=== PATIENT | female | born 1955 | race Caucasian/White ===

== ENCOUNTER 2016-11-08 09:03 | Outpatient (CLI) | payer OTHER | END 2016-11-08 09:04 | disposition home or self-care (01) | DX: R25.2 Cramp and spasm (principal) ==

== ENCOUNTER 2016-11-15 08:06 | Outpatient (CLI) | payer OTHER | END 2016-11-15 23:59 | DX: E83.52 Hypercalcemia (principal) ==

== ENCOUNTER 2017-01-08 14:54 | Outpatient (CLI) | payer OTHER | END 2017-01-08 14:55 | disposition home or self-care (01) | DX: E55.9 Vitamin D deficiency, unspecified (principal); E83.52 Hypercalcemia ==

== ENCOUNTER 2017-04-17 08:03 | Outpatient (CLI) | payer OTHER ==
[2017-04-17 08:27] LABS: BASOPHILS # (AUTO) 0.1 10^3/uL (0.0-0.1); BASOPHILS % (AUTO) 1.3 %; EOSINOPHILS # (AUTO) 0.1 10^3/uL (0.0-0.7); EOSINOPHILS % (AUTO) 1.9 %; HCT - HEMATOCRIT 40.9 % (37.0-47.0); HGB - HEMOGLOBIN 13.8 g/dL (12.0-16.0); LYMPHOCYTES # (AUTO) 1.4 10^3/uL (1.5-3.5); MEAN CORPUSCULAR HEMOGLOBIN 30.1 pg (27.0-31.0); MEAN CORPUSCULAR HGB CONC 33.8 g/dL (32.0-36.0); MEAN CORPUSCULAR VOLUME 89.2 fL (81.0-99.0); MEAN PLATELET VOLUME 9.4 fL (7.9-10.8); MONOCYTES # (AUTO) 0.4 10^3/uL (0.0-1.0); MONOCYTES % (AUTO) 7.4 %; NEUTROPHILS # (AUTO) 3.5 10^3/uL (1.5-6.6); NEUTROPHILS % (AUTO) 64.4 %; RED BLOOD COUNT 4.58 10^6/uL (4.20-5.40); UNCORRECTED WHITE BLOOD COUNT 5.5 x10^3/uL; WHITE BLOOD COUNT 5.5 x10^3/uL (4.8-10.8)
[2017-04-17 08:33] LABS: CALCIUM, IONIZED 1.35 mmol/L (1.15-1.33); VBG PH 7.428 (7.31-7.41)
[2017-04-17 08:54] LABS: ALBUMIN/GLOBULIN RATIO 1.7 (1.0-2.2); BILIRUBIN,TOTAL 0.9 mg/dL (0.2-1.0); BUN - BLOOD UREA NITROGEN 15 mg/dL (6-20); CALCIUM 10.4 mg/dL (8.5-10.3); CARBON DIOXIDE - CO2 24 mmol/L (21-32); CHLORIDE 106 mmol/L (101-111); CHOL/HDL RATIO 3.1 (<4.4); CHOLESTEROL 193 mg/dL; CREATININE 0.7 mg/dL (0.4-1.0); GFR - MDRD 85 (>89); GLUCOSE 98 mg/dL (70-100); HDL CHOLESTEROL 62 mg/dL; LDL/HDL RATIO 1.8 (<4.4); POTASSIUM 4.3 mmol/L (3.5-5.0); SODIUM 137 mmol/L (135-145); TOTAL PROTEIN 6.7 g/dL (6.7-8.2); TRIGLYCERIDES 110 mg/dL; VLDL CHOLESTEROL 22 mg/dL
== END 2017-04-17 08:04 | disposition home or self-care (01) ==
LOC: LAB.R 08:03
PROVIDERS: ATTEND Physician Assistant Medical
DX: Z00.00 Encounter for general adult medical examination without abnormal findings (principal); E83.52 Hypercalcemia; Z79.899 Other long term (current) drug therapy
CPT/HCPCS: 80053; 80061; 82306; 82330; 84443; 85025

== ENCOUNTER 2017-12-02 10:05 | Outpatient (CLI) | payer OTHER ==
[2017-12-02 13:27] LABS: CREATININE 0.7 mg/dL (0.4-1.0)
== END 2017-12-02 10:06 | disposition home or self-care (01) ==
LOC: LAB.R 10:05
PROVIDERS: ATTEND Physician Assistant Medical
DX: Z79.899 Other long term (current) drug therapy (principal)
CPT/HCPCS: 82565; 84520

== ENCOUNTER 2020-03-16 11:19 | Outpatient (CLI) | payer BC ==
[2020-03-16] MEDS ORDERED: IOVERSOL 320 100 ML VIAL IVP ONE ×2 (11:50→13:58)
[2020-03-16] MEDS ORDERED: IOVERSOL 320 50 ML VIAL ONE (11:50)
[2020-03-16 12:11] LABS: CREATININE 0.7 mg/dL (0.4-1.0)
[2020-03-16] MEDS ORDERED: IOVERSOL 320 50 ML VIAL PO ONE (13:58)
--- NOTE | 2020-03-16 14:56 | CT Report ---
Reason: RLQ PAIN Procedure Date: 03/16/2020 Accession Number: [id number] / [id number] Procedure: CT - Abdomen/Pelvis W CPT Code: Addended Final Report FULL RESULT: EXAM: CT ABDOMEN AND PELVIS EXAM DATE: 03/16/2020 12:53 PM. CLINICAL HISTORY: RLQ pain. COMPARISONS: None. TECHNIQUE: Routine helical CT imaging was performed through the abdomen and pelvis. IV contrast: 100 mL of Optiray 320. Enteric contrast: Yes. Reconstructions: Coronal and sagittal. In accordance with CT protocol optimization, one or more of the following dose reduction techniques were utilized for this exam: automated exposure control, adjustment of mA and/or KV based on patient size, or use of iterative reconstructive technique. FINDINGS: Lung Bases: Small incidental hiatal hernia. No effusions. Liver: Normal. No masses. Gallbladder/Bile Ducts: Gallbladder is absent. No significant common bile duct dilation noted. Spleen: No mass or splenomegaly. Indeterminate low density cystic structure in the inferior spleen measures 0.7 cm on image 3, 25. No enhancing solid component is noted. Pancreas: Normal. Adrenal Glands: Normal. Kidneys: Normal. No masses or hydronephrosis. Peritoneal Cavity/Bowel: No pneumoperitoneum, adenopathy or mass. The inflamed, dilated appendix measures up to 1.3 cm and is seen on image 3, 54. There is moderate to marked adjacent fat stranding. No loculated fluid collection seen. No pneumatosis, obstruction or other complications noted. Colonic diverticulosis is noted. Remaining small bowel, large bowel and stomach are normal. Pelvic Organs: Prominent pelvic vessels are noted bilaterally. Both ovaries appeared normal. The uterus is absent. Otherwise, the bladder and visualized pelvic organs are within normal limits. No collections, ascites or adenopathy. Vasculature: Diffuse atheromatous plaques are present in the abdominal aorta and branch vessels. No aneurysm. Normal IVC. Bones: No significant abnormality. Other: None. IMPRESSION: 1. CT findings compatible with acute appendicitis. No complications such as perforation or abscess. 2. Diverticulosis. 3. Status post hysterectomy and cholecystectomy. [facility] The call report notification system was initiated by Dr. Elizabeth Reyes at 02:55 PM on 03/16/2020. ADDENDUM: 03/16/20 15:23 The above call report findings were discussed with Margarita Gibbs by Dr. Elizabeth Reyes at 03:23 PM on 03/16/2020.
== END 2020-03-16 11:20 | disposition home or self-care (01) ==
LOC: DI 11:19
PROVIDERS: ATTEND Internal Medicine
DX: K57.30 Diverticulosis of large intestine without perforation or abscess without bleeding (principal); R10.31 Right lower quadrant pain; Z90.710 Acquired absence of both cervix and uterus; Z90.49 Acquired absence of other specified parts of digestive tract; Z79.899 Other long term (current) drug therapy
CPT/HCPCS: 36415; 74177; 82565; Q9967

== ENCOUNTER 2020-03-16 15:55 | Day surgery (SDC) | payer BC ==
--- NOTE | 2020-03-16 16:10 | ED Physician Documentation ---
PD HPI ABD PAIN - Stated complaint Stated Complaint: RT ABD PX - Chief complaint Chief Complaint: Abd Pain - History obtained from History obtained from: Patient (64-year-old woman relatively healthy with history of psoriasis and arthritis. Also remote history of open cholecystectomy and presents with lower abdominal pain that started last night around 7 PM. She had an outpatient CT done today showing uncomplicated appendicitis and was referred to the emergency department for further evaluation and treatment. Last oral intake was a tuna sandwich at 1330. 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 - Present Medications Home Medications: Ambulatory Orders Medication Instructions Recorded Confirmed Acyclovir 400 mg PO BID 03/16/20 03/16/20 Apremilast [Otezla] 30 mg PO BID 03/16/20 03/16/20 Famotidine 20 mg PO DAILY 03/16/20 03/16/20 - Allergies Allergies/Adverse Reactions: Allergies Allergy/AdvReac Type Severity Reaction Status Date / Time Penicillins Allergy Anaphylaxis Verified 03/16/20 16:04 - Social History Does the pt smoke?: No Does the pt have substance abuse?: No - Family History Family history: reports: Non contributory PD ED PE NORMAL - Vitals Vital signs reviewed: Yes - General General: Alert and oriented X 3, No acute distress - HEENT HEENT: PERRL, EOMI - Neck Neck: Supple, no meningeal sign, No bony TTP - Cardiac Cardiac: RRR, No murmur - Respiratory Respiratory: No respiratory distress, Clear bilaterally - Abdomen Abdomen: Normal bowel sounds, Soft, Other (Modest tenderness in the right lower quadrant without surgical signs) - Back Back: No CVA TTP, No spinal TTP - Derm Derm: Normal color, Warm and dry - Extremities Extremities: No edema, No calf tenderness / cord - Neuro Neuro: Alert and oriented X 3, Normal speech Results - Vitals Vitals: Vital Signs - 24 hr 03/16/20 03/16/20 03/16/20 16:05 16:39 17:08 Temperature 37.2 C Heart Rate 83 78 79 Respiratory 16 18 17 Rate Blood Pressure 147/66 H 148/77 H 136/77 H O2 Saturation 97 97 97 Oxygen O2 Source Room air - Labs Labs: Laboratory Tests 03/16/20 03/16/20 16:32 16:32 WBC 7.4 RBC 4.54 Hgb 14.1 Hct 42.7 MCV 94.1 MCH 31.1 H MCHC 33.0 RDW 13.2 Plt Count 322 MPV 10.1 Neut # (Auto) 5.0 Lymph # (Auto) 1.7 [place] # (Auto) 0.6 Eos # (Auto) 0.0 Baso # (Auto) 0.0 Absolute Nucleated RBC 0.00 Nucleated RBC % 0.0 Sodium 136 Potassium 3.7 Chloride 102 Carbon Dioxide 27 Anion Gap 7.0 BUN 14 Creatinine 0.9 Estimated GFR (MDRD) 63 L Glucose 111 H Calcium 10.5 H Total Bilirubin 0.8 AST 15 ALT 16 Alkaline Phosphatase 53 Total Protein 7.2 Albumin 4.3 Globulin 2.9 Albumin/Globulin Ratio 1.5 Lipase 30 PD MEDICAL DECISION MAKING - ED course ED course: 64-year-old woman presents from an outpatient setting with a CT positive for appendicitis. The surgeon, Dr. Muñoz was called after my evaluation and she was administered cefotetan and pending the OR. Departure - Departure Disposition: ED Transfer to [facility] Clinical Impression: Uncomplicated acute appendicitis Condition: Stable Discharge Date/Time: 03/16/20 17:22
[2020-03-16] MEDS ORDERED: CEFOTETAN DISODIUM 2 GM in SODIUM CHLORIDE 0.9% MINIBAG 100 ML IV STA (16:24)
[2020-03-16 16:42] LABS: BASOPHILS % (AUTO) 0.5 %; EOSINOPHILS % (AUTO) 0.5 %; HGB - HEMOGLOBIN 14.1 g/dL (12.0-16.0); LYMPHOCYTES # (AUTO) 1.7 10^3/uL (1.5-3.5); LYMPHOCYTES % (AUTO) 23.3 %; MEAN CORPUSCULAR HEMOGLOBIN 31.1 pg (27.0-31.0); MEAN CORPUSCULAR VOLUME 94.1 fL (81.0-99.0); MEAN PLATELET VOLUME 10.1 fL (7.9-10.8); MONOCYTES # (AUTO) 0.6 10^3/uL (0.0-1.0); MONOCYTES % (AUTO) 7.9 %; NEUTROPHILS % (AUTO) 67.5 %; PLT - PLATELET COUNT 322 10^3/uL (130-450); RED BLOOD COUNT 4.54 10^6/uL (4.20-5.40); RED CELL DISTRIBUTION WIDTH 13.2 % (12.0-15.0); WHITE BLOOD COUNT 7.4 x10^3/uL (4.8-10.8)
[2020-03-16 16:55] LABS: ALBUMIN 4.3 g/dL (3.2-5.5); ALBUMIN/GLOBULIN RATIO 1.5 (1.0-2.2); BILIRUBIN,TOTAL 0.8 mg/dL (0.2-1.0); CALCIUM 10.5 mg/dL (8.5-10.3); CREATININE 0.9 mg/dL (0.4-1.0); TOTAL PROTEIN 7.2 g/dL (6.7-8.2)
--- NOTE | 2020-03-16 16:57 | ANESTHESIA ---
Pre-Anesthesia VS, & Labs - Diagnosis acute appendicitis - Procedure laparoscopic appendectomy Vital Signs: Temp Pulse Resp BP Pulse Ox 37.2 C 83 16 147/66 H 97 03/16/20 16:05 03/16/20 16:05 03/16/20 16:05 03/16/20 16:05 03/16/20 16:05 Height 5 ft 1 in Weight (kg) 63.957 kg Body Mass Index 26.6 - NPO Other (ate 1330) - Is Patient ?: No - Lab Results Current Lab Results: Laboratory Tests 03/16/20 16:32: Sodium 136, Potassium 3.7, Chloride 102, Carbon Dioxide 27, Anion Gap 7.0, BUN 14, Creatinine 0.9, Estimated GFR (MDRD) 63 L, Glucose 111 H, Calcium 10.5 H, Total Bilirubin 0.8, AST 15, ALT 16, Alkaline Phosphatase 53, To paulette Protein 7.2, Albumin 4.3, Globulin 2.9, Albumin/Globulin Ratio 1.5, Lipase 30 03/16/20 16:32: WBC 7.4, RBC 4.54, Hgb 14.1, Hct 42.7, MCV 94.1, MCH 31.1 H, MCHC 33.0, RDW 13.2, Plt Count 322, MPV 10.1, Neut # (Auto) 5.0, Lymph # (Auto) 1.7, [place] # (Auto) 0.6, Eos # (Auto) 0.0, Baso # (Auto) 0.0, Absolute Nucleated RBC 0.00, Nucleated RBC % 0.0 Lab results reviewed: Yes Fish Bones: 03/16/20 16:32 03/16/20 16:32 Home Medications and Allergies Home Medications: Ambulatory Orders Acyclovir 400 mg PO BID 03/16/20 Apremilast [Otezla] 30 mg PO BID 03/16/20 Famotidine 20 mg PO DAILY 03/16/20 Acyclovir 400 mg PO BID 03/16/20 Apremilast [Otezla] 30 mg PO BID 03/16/20 Famotidine 20 mg PO DAILY 03/16/20 Allergies/Adverse Reactions: Allergies Allergy/AdvReac Type Severity Reaction Status Date / Time Penicillins Allergy Anaphylaxis Verified 03/16/20 16:04 Anes History & Medical History - Anesthetic History Anesthesia Complications: reports: No previous complications Family history of Anesthesia Complications: Denies Family history of Malignant Hyperthermia: Denies - Medical History Cardiovascular: reports: None Pulmonary: reports: None Gastrointestinal: reports: Other (IBS) Musculoskeletal: reports: Osteoarthritis Skin: reports: Psoriasis Smoking Status: Former smoker - Surgical History General: Cholecystectomy Gynecologic: section Exam General: Alert, Oriented x3, Cooperative Dental: WNL Mouth Opening: Greater than 4 Fingerbreadths Neck Mobility: Normal Mallampati classification: II Thyromental Distance: 4-6 cm Respiratory: Lungs clear Cardiovascular: Regular rate Plan Anesthesia Type: General Consent for Procedure(s) Verified and Reviewed: Yes Code Status: Attempt Resuscitation ASA classification: 2-Mild systemic disease Is this case an emergency?: Yes
[2020-03-16] MEDS ORDERED: BUPIVACAINE 0.25% PF 30 ML VIAL ONE (17:00)
[2020-03-16] MEDS ORDERED: LIDOCAINE 1%-EPI 1:100000 20 ML MDV ONE (17:00)
[2020-03-16] MEDS ORDERED: SUGAMMADEX 500 MG/5 ML VIAL IVP ONE (17:02)
[2020-03-16] MEDS ORDERED: SUGAMMADEX 200 MG/2 ML VIAL IVP ONE (17:03)
[2020-03-16] MEDS ORDERED: LACTATED RINGERS 1,000 ML IV ONE (17:05)
--- NOTE | 2020-03-16 17:06 | HISTORY & PHYSICAL EXAMINATION ---
Chief Complaint - Chief Complaint Chief Complaint: abdominal pain x 24 hours. 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 Social & Family Hx - Social History Does the pt smoke?: No Smoking Status: Former smoker Does the pt drink ETOH?: No Does the pt have substance abuse?: No Meds/Allgy - Home Medications Home Medications: Ambulatory Orders Medication Instructions Recorded Confirmed Acyclovir 400 mg PO BID 03/16/20 03/16/20 Apremilast [Otezla] 30 mg PO BID 03/16/20 03/16/20 Famotidine 20 mg PO DAILY 03/16/20 03/16/20 - Allergies Allergies/Adverse Reactions: Allergies Allergy/AdvReac Type Severity Reaction Status Date / Time Penicillins Allergy Anaphylaxis Verified 03/16/20 16:04 Review of Systems - Constitutional Constitutional: reports: Fatigue (10 pt ros as above and below otherwise unremarkable) Exam - Vital Signs Vital Signs: Vital Signs x48h Temp Pulse Resp BP Pulse Ox 03/16/20 16:39 78 18 148/77 H 97 03/16/20 16:05 37.2 C 83 16 147/66 H 97 - Physical Exam General Appearance: positive: No acute distress Eyes Bilateral: positive: Normal inspection, PERRL, EOMI Neck: positive: No JVD Respiratory: positive: No respiratory distress Abdomen: positive: No distention, Tenderness (right lower quadrant) Extremities: positive: No pedal edema Neurologic/Psychiatric: positive: Oriented x3 Results - Lab Results Fish Bones: 03/16/20 16:32 03/16/20 16:32 Other Lab Results: Lab Results x24hrs 03/16/20 03/16/20 Range/Units 16:32 16:32 WBC 7.4 (4.8-10.8) x10^3/uL RBC 4.54 (4.20-5.40) 10^6/uL Hgb 14.1 (12.0-16.0) g/dL Hct 42.7 (37.0-47.0) % MCV 94.1 (81.0-99.0) fL MCH 31.1 H (27.0-31.0) pg MCHC 33.0 (32.0-36.0) g/dL RDW 13.2 (12.0-15.0) % Plt Count 322 (130-450) 10^3/uL MPV 10.1 (7.9-10.8) fL Neut # (Auto) 5.0 (1.5-6.6) 10^3/uL Lymph # (Auto) 1.7 (1.5-3.5) 10^3/uL [place] # (Auto) 0.6 (0.0-1.0) 10^3/uL Eos # (Auto) 0.0 (0.0-0.7) 10^3/uL Baso # (Auto) 0.0 (0.0-0.1) 10^3/uL Absolute Nucleated RBC 0.00 x10^3/uL Nucleated RBC % 0.0 /100WBC Sodium 136 (135-145) mmol/L Potassium 3.7 (3.5-5.0) mmol/L Chloride 102 (101-111) mmol/L Carbon Dioxide 27 (21-32) mmol/L Anion Gap 7.0 (6-13) BUN 14 (6-20) mg/dL Creatinine 0.9 (0.4-1.0) mg/dL Estimated GFR (MDRD) 63 L (>89) Glucose 111 H (70-100) mg/dL Calcium 10.5 H (8.5-10.3) mg/dL Total Bilirubin 0.8 (0.2-1.0) mg/dL AST 15 (10-42) IU/L ALT 16 (10-60) IU/L Alkaline Phosphatase 53 (42-121) IU/L Total Protein 7.2 (6.7-8.2) g/dL Albumin 4.3 (3.2-5.5) g/dL Globulin 2.9 (2.1-4.2) g/dL Albumin/Globulin Ratio 1.5 (1.0-2.2) Lipase 30 (22-51) U/L - Diagnostic Imaging Results Diagnostic Imaging Results: positive: Read independently (obvious appendicitis) Impression/Plan - Problem List Problem List: Appendicitis parq held and consent obtained. plan lap appendectomy
[2020-03-16] MEDS ORDERED: DEXAMETHASONE 4 MG/ML VIAL IVP ONE (17:07)
[2020-03-16] MEDS ORDERED: PROPOFOL 200 MG/20 ML VIAL IVP ONE (17:07)
[2020-03-16] MEDS ORDERED: KETOROLAC 30 MG/ML VIAL IVP ONE (17:07)
[2020-03-16] MEDS ORDERED: ROCURONIUM 50 MG/5 ML VIAL IVP ONE (17:07)
[2020-03-16] MEDS ORDERED: ONDANSETRON 4 MG/2 ML VIAL IVP ONE (17:07)
[2020-03-16] MEDS ORDERED: MIDAZOLAM 2 MG/2 ML VIAL IVP ONE (17:07)
[2020-03-16] MEDS ORDERED: fentaNYL 250 MCG/5 ML VIAL IVP ONE (17:07)
[2020-03-16] MEDS ORDERED: LIDOCAINE 1%-EPI 1:100000 20 ML MDV SUBQ ONE ×2 (17:56)
[2020-03-16] MEDS ORDERED: BUPIVACAINE 0.25% PF 30 ML VIAL SUBQ ONE ×2 (17:57)
[2020-03-16] MEDS ORDERED: HYDROcod/ACETAM 5/325 MG TABLET PO PRN (18:38)
[2020-03-16 20:16] VITALS: BP 130/75
--- NOTE | 2020-03-17 19:30 | OPERATIVE REPORT ---
DATE OF SERVICE: 03/16/2020 Physician: Andrea Muñoz MD PREOPERATIVE DIAGNOSIS: Acute appendicitis. POSTOPERATIVE DIAGNOSIS: Acute appendicitis. PROCEDURE PERFORMED: Laparoscopic appendectomy. SURGEON: Andrea Muñoz MD [id number] OPERATOR: None. ANESTHESIA: General endotracheal anesthesia, local anesthesia with Marcaine. COMPLICATIONS: None. ESTIMATED BLOOD LOSS: 10 mL or less. SPECIMENS: Appendix. DRAINS: None. FINDINGS: Acute appendicitis without suppurative change or purulence. INDICATIONS FOR PROCEDURE: Patient is a healthy 64-year-old with vague abdominal pain starting 24 ho urs prior to the procedure. Her pain localized to the right lower quadrant and CT scan was obtained. A CT scan revealed acute appendicitis. She has taken urgently to the operating room after procedur e, alternatives, risks discussed. All questions answered and consent obtained. DESCRIPTION OF PROCEDURE: Patient was properly identified, brought to the operating room and placed in supine position. She voided prior to surgery. General endotracheal anesthesia was induced and se quential compression devices placed. She was prepped and draped in a sterile fashion. She previousl y received antibiotics through the Emergency Department. Local anesthetic was given to incision area s. An infraumbilical incision was made. Dissection proceeded down to the fascia. The fascia was in cised lifted upwards and the abdomen entered with a Veress needle. CO2 was insufflated to a pressure of 15. A 12 mm trocar was placed, followed by a 30-degree scope. There was no evidence of injury f rom Veress needle or trocar placement. Patient has had prior surgery, open cholecystectomy and low m idline incision as well. She had minimal to no intra-abdominal adhesions. Under direct vision, a 5 mm trocar was placed in the right upper quadrant and a 5 mm trocar was placed suprapubically. The ap pendix was long, floppy, and obviously inflamed. It was retracted anterior. She had a relatively la rge mesoappendix and long appendix. A plane was created towards the base of the appendix between the appendix and the mesoappendix. The mesoappendix was divided with an Endo-MOOSE vascular load. There was approximately 5-10 mL of bleeding at the staple line. This was controlled with cautery. An krissy tional vessel at the cecum, appendix junction was divided with an Endo-MOOSE vascular load. The append ix was then divided right at the cecum with an Endo-MOOSE intestinal load. Hemostasis was assured. Th e appendix was placed in an EndoCatch bag and brought out. The abdomen was thoroughly irrigated. Tr ocars were removed under direct vision and CO2 evacuated. Hemostasis again assured. Fascia at the i nfraumbilical site was closed with a running 0 Vicryl suture. Skin was closed with buried interrupte d 4-0 Monocryl. Dressings were applied. She tolerated the procedure well. TD: 03/17/2020 18:58
== END 2020-03-16 20:30 | disposition home or self-care (01) ==
LOC: ED 15:55 → SDS 17:06 → MS2 19:12 → SDS 20:30
PROVIDERS: ATTEND Surgery
PROC: 0DTJ4ZZ Resection of Appendix, Percutaneous Endoscopic Approach (ICD-10-PCS; principal; 2020-03-16 17:00)
DX: K35.80 Unspecified acute appendicitis (principal); Z87.891 Personal history of nicotine dependence; K57.30 Diverticulosis of large intestine without perforation or abscess without bleeding; Z90.710 Acquired absence of both cervix and uterus; Z90.49 Acquired absence of other specified parts of digestive tract; Z79.899 Other long term (current) drug therapy
CPT/HCPCS: 36415; 44970; 74177; 80053; 82565; 83690; 85025; 96365; 99284; 99285; J3010; J7120; Q9967

== ENCOUNTER 2021-04-30 10:20 | Outpatient (CLI) | payer BC ==
[2021-04-30 10:36] LABS: BASOPHILS # (AUTO) 0.1 10^3/uL (0.0-0.1); BASOPHILS % (AUTO) 0.9 %; EOSINOPHILS # (AUTO) 0.1 10^3/uL (0.0-0.7); EOSINOPHILS % (AUTO) 1.4 %; HCT - HEMATOCRIT 41.9 % (37.0-47.0); HGB - HEMOGLOBIN 13.4 g/dL (12.0-16.0); LYMPHOCYTES # (AUTO) 1.3 10^3/uL (1.5-3.5); LYMPHOCYTES % (AUTO) 20.7 %; MEAN CORPUSCULAR HEMOGLOBIN 29.6 pg (27.0-31.0); MEAN CORPUSCULAR VOLUME 92.5 fL (81.0-99.0); MONOCYTES # (AUTO) 0.5 10^3/uL (0.0-1.0); NEUTROPHILS # (AUTO) 4.5 10^3/uL (1.5-6.6); NEUTROPHILS % (AUTO) 69.7 %; PLT - PLATELET COUNT 310 10^3/uL (130-450); RED BLOOD COUNT 4.53 10^6/uL (4.20-5.40); RED CELL DISTRIBUTION WIDTH 13.9 % (12.0-15.0); WHITE BLOOD COUNT 6.4 x10^3/uL (4.8-10.8)
[2021-04-30 10:54] LABS: ALBUMIN 4.1 g/dL (3.2-5.5); ALKALINE PHOSPHATASE 50 IU/L (42-121); ALT ALANINE AMINOTRANSFERASE 13 IU/L (10-60); AST ASPARTATE AMINOTRANSFERASE 10 IU/L (10-42); BILIRUBIN,DIRECT 0.1 mg/dL (0.1-0.5); BILIRUBIN,TOTAL 0.7 mg/dL (0.2-1.0); BUN - BLOOD UREA NITROGEN 14 mg/dL (6-20); CALCIUM 10.2 mg/dL (8.5-10.3); CARBON DIOXIDE - CO2 25 mmol/L (21-32); CHLORIDE 106 mmol/L (101-111); CHOL/HDL RATIO 2.5 (<4.4); CHOLESTEROL 186 mg/dL; CREATININE 0.6 mg/dL (0.4-1.0); GFR - MDRD 100 (>89); GLUCOSE 125 mg/dL (70-100); HDL CHOLESTEROL 74 mg/dL; LDL CHOLESTEROL,CALCULATED 87 mg/dL; LDL/HDL RATIO 1.2 (<4.4); POTASSIUM 4.1 mmol/L (3.5-5.0); SODIUM 140 mmol/L (135-145); TOTAL PROTEIN 6.4 g/dL (6.7-8.2); TRIGLYCERIDES 124 mg/dL; VLDL CHOLESTEROL 25 mg/dL
== END 2021-04-30 10:21 | disposition home or self-care (01) ==
LOC: LAB 10:20
DX: L40.0 Psoriasis vulgaris (principal); Z79.899 Other long term (current) drug therapy
CPT/HCPCS: 36415; 80048; 80061; 80076; 83721; 85025

== ENCOUNTER 2022-08-14 08:00 | Outpatient (CLI) | payer MEDICARE, OTHER ==
[2022-08-14 16:16] LABS: CALCIUM 10.4 mg/dL (8.5-10.3); CHOL/HDL RATIO 2.7 (<4.4); CHOLESTEROL 198 mg/dL; CK- CREATINE KINASE 39 IU/L (22-269); HDL CHOLESTEROL 73 mg/dL; LDL CHOLESTEROL,CALCULATED 106 mg/dL; LDL/HDL RATIO 1.5 (<4.4); MAGNESIUM 2.1 mg/dL (1.7-2.8); TRIGLYCERIDES 96 mg/dL; VLDL CHOLESTEROL 19 mg/dL
[2022-08-14 22:11] LABS: ESTIMATED AVERAGE GLUCOSE 105 mg/dL (70-100); HEMOGLOBIN A1c% 5.3 % (4.27-6.07)
== END 2022-08-14 23:59 | disposition home or self-care (01) ==
LOC: LAB.R 08:00
PROVIDERS: ATTEND Internal Medicine
DX: Z00.00 Encounter for general adult medical examination without abnormal findings (principal); F41.9 Anxiety disorder, unspecified; D18.00 Hemangioma unspecified site; A60.00 Herpesviral infection of urogenital system, unspecified; E78.5 Hyperlipidemia, unspecified; R68.84 Jaw pain; D36.10 Benign neoplasm of peripheral nerves and autonomic nervous system, unspecified; M19.90 Unspecified osteoarthritis, unspecified site; L40.9 Psoriasis, unspecified; Z79.899 Other long term (current) drug therapy
CPT/HCPCS: 80061; 82310; 82550; 83036; 83721; 83735

== ENCOUNTER 2023-01-27 18:37 | Emergency (ER) | payer MEDICARE, OTHER ==
[2023-01-27 18:45] VITALS: BP 158/70
[2023-01-27] MEDS ORDERED: TETANUS/DIPHTHERIA/PERTUSSIS 0.5 ML SYRINGE IM ONE (19:05)
[2023-01-27] MEDS ORDERED: BACITRACIN ZINC OINT 1 PACKET TOP STA (19:31)
[2023-01-27] MEDS ORDERED: DOXYCYCLINE 100 MG TABLET PO STA (19:33)
--- NOTE | 2023-01-27 19:36 | ED Physician Documentation ---
History of Present Illness - Stated complaint Stated Complaint: RT HAND LAC - Chief complaint Chief Complaint: Laceration - Additonal information Additional information: 59-year-old female presents the emergency department for evaluation of a right hand laceration. She was being playful and petting her dog when the dog opened its mouth and her hand came into contact with one of the canines. This was not a puncture wound but rather a tearing laceration. Patient's tetanus is up-to-date in 2019. Her dogs vaccines are also up-to-date. 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 - Present Medications Home Medications: Ambulatory Orders Medication Instructions Recorded Confirmed Acyclovir 400 mg PO BID 03/16/20 03/16/20 Apremilast [Otezla] 30 mg PO BID 03/16/20 03/16/20 Famotidine 20 mg PO DAILY 03/16/20 03/16/20 Hydrocodone/Acetaminophen 1 each PO Q6HR PRN #20 tablet 03/16/20 [Hydrocodone-Acetamin 5-325 mg] Ondansetron Odt [Zofran Odt] 4 mg PO Q6H PRN #15 tablet 03/16/20 Doxycycline Hyclate 100 mg PO BID #6 cap 01/27/23 - Allergies Allergies/Adverse Reactions: Allergies Allergy/AdvReac Type Severity Reaction Status Date / Time Penicillins Allergy Anaphylaxis Verified 01/27/23 18:45 - Social History Does the pt smoke?: No Smoking Status: Never smoker Does the pt drink ETOH?: Yes Does the pt have substance abuse?: No - Immunizations Immunizations are current?: Yes Immunizations: TDAP >10years/unknown - POLST Patient has POLST: No PD ED PE NORMAL - General General: Alert and oriented X 3, No acute distress - Derm Derm: Other (3 cm laceration on the dorsum of the right hand between the thumb and index finger. Preserved flexion and extension against resistance of the thumb and index finger. Neurovascular intact.) Results - Vitals Vitals: Vital Signs - 24 hr 01/27/23 18:43 Temperature 36.0 C L Heart Rate 102 H Respiratory 16 Rate Blood Pressure 158/70 H O2 Saturation 96 Oxygen O2 Source Room air Procedures - Laceration (location) Right hand Length in cm: 3 Wound type: Linear, Into subcut fat Neurovascular status: Sensory intact, Motor intact Tendon involvement: Tendon intact Anesthesia: Marcaine 0.5% Wound preparation: Chlorhexadine, Irrigated copiously NS Skin layer closure: Nylon, Interrupted, Size #-0 - enter number (4), Sutures - enter # (3) Other: Patient tolerated well, No complications, Neurovascular intact, Tetanus UTD PD Medical Decision Making - ED course Complexity details: considered differential, d/w patient ED course: 59-year-old female presents emergency department for evaluation of right hand laceration sustained when her hand incidentally came into contact with her dog's tooth while they were playing. This was not an aggressive bite or puncture wound. Patient's tetanus is up-to-date. Laceration was easily closed utilizing 3 interrupted 4-0 nylon sutures. Given incidental exposure with dog's mouth 3 days of doxycycline are being sent to the patient's preferred pharmacy. Patient does have anaphylaxis to penicillin. Routine wound care and the usual emergent return precautions were discussed Departure - Departure Disposition: 01 Home, Self Care Clinical Impression: Laceration of right hand Qualifiers: Encounter type: initial encounter Foreign body presence: without foreign body Qualified Code(s): S61.411A - Laceration without foreign body of right hand, initial encounter Condition: Stable Record reviewed to determine appropriate education?: Yes Prescriptions: Doxycycline Hyclate 100 mg PO BID #6 cap Comments: Your suture(s) should be removed in 10 days. In 24 hours you may remove the dressing wash gently with warm soap and water, apply any antibiotic ointment and a simple bandage. Your tetanus is up-to-date. Please attempt to keep your wound clean and dry. Do not submerge it in dirty dishwater or bath water. I have prescribed 3 days of prophylactic antibiotic to the [facility] pharmacy as your laceration was sustained from incidental contact with your dog's mouth. Return to the emergency department if you have any concerns of infection such as redness, fevers milky drainage increased pain.
== END 2023-01-27 19:43 | disposition home or self-care (01) ==
LOC: ED 18:37
DX: S61.411A Laceration without foreign body of right hand, initial encounter (principal); W45.8XXA Other foreign body or object entering through skin, initial encounter; Y93.K9 Activity, other involving animal care
CPT/HCPCS: 12002; 99282; A9270

== ENCOUNTER 2023-10-02 07:51 | Outpatient (CLI) | payer MEDICARE, OTHER ==
[2023-10-02 08:13] LABS: BASOPHILS # (AUTO) 0.1 10^3/uL (0.0-0.1); BASOPHILS % (AUTO) 0.8 %; EOSINOPHILS # (AUTO) 0.1 10^3/uL (0.0-0.7); EOSINOPHILS % (AUTO) 0.9 %; HCT - HEMATOCRIT 39.1 % (37.0-47.0); HGB - HEMOGLOBIN 12.5 g/dL (12.0-16.0); LYMPHOCYTES # (AUTO) 1.4 10^3/uL (1.5-3.5); MEAN CORPUSCULAR HEMOGLOBIN 29.4 pg (27.0-31.0); MEAN PLATELET VOLUME 9.3 fL (7.9-10.8); MONOCYTES # (AUTO) 0.7 10^3/uL (0.0-1.0); NEUTROPHILS # (AUTO) 5.2 10^3/uL (1.5-6.6); NEUTROPHILS % (AUTO) 69.8 %; PLT - PLATELET COUNT 437 10^3/uL (130-450); RED BLOOD COUNT 4.25 10^6/uL (4.20-5.40); RED CELL DISTRIBUTION WIDTH 13.2 % (12.0-15.0); WHITE BLOOD COUNT 7.4 x10^3/uL (4.8-10.8)
[2023-10-02 08:30] LABS: ALBUMIN 3.7 g/dL (3.2-5.5); ALBUMIN/GLOBULIN RATIO 1.3 (1.0-2.2); ALKALINE PHOSPHATASE 48 IU/L (42-121); ALT ALANINE AMINOTRANSFERASE 6 IU/L (10-60); AST ASPARTATE AMINOTRANSFERASE 8 IU/L (10-42); BILIRUBIN,TOTAL 0.5 mg/dL (0.2-1.0); BUN - BLOOD UREA NITROGEN 12 mg/dL (6-20); CARBON DIOXIDE - CO2 29 mmol/L (21-32); CHLORIDE 107 mmol/L (101-111); CHOLESTEROL 179 mg/dL; CK- CREATINE KINASE 29 IU/L (30-223); CREATININE 0.6 mg/dL (0.6-1.3); CRP - C-REACTIVE PROTEIN 6.4 mg/dL (<0.5); GFR - MDRD 99 (>89); GLUCOSE 104 mg/dL (74-104); HDL CHOLESTEROL 59 mg/dL; LDL CHOLESTEROL,CALCULATED 103 mg/dL; LDL/HDL RATIO 1.7 (<4.4); POTASSIUM 4.2 mmol/L (3.5-4.5); SODIUM 140 mmol/L (135-145); TOTAL PROTEIN 6.5 g/dL (6.4-8.9); TRIGLYCERIDES 85 mg/dL (48-352); VLDL CHOLESTEROL 17 mg/dL
[2023-10-02 08:45] LABS: THYROID STIMULATING HORMONE 2.75 uIU/mL (0.34-5.60)
[2023-10-02 11:33] LABS: ESTIMATED AVERAGE GLUCOSE 100 mg/dL (70-100); HEMOGLOBIN A1c% 5.1 % (4.27-6.07)
== END 2023-10-02 07:52 | disposition home or self-care (01) ==
LOC: LAB 07:51
PROVIDERS: ATTEND Internal Medicine
DX: Z00.00 Encounter for general adult medical examination without abnormal findings (principal); E78.5 Hyperlipidemia, unspecified; D36.10 Benign neoplasm of peripheral nerves and autonomic nervous system, unspecified; G62.9 Polyneuropathy, unspecified; M19.90 Unspecified osteoarthritis, unspecified site; L40.9 Psoriasis, unspecified; M25.519 Pain in unspecified shoulder; Z79.899 Other long term (current) drug therapy; R53.1 Weakness
CPT/HCPCS: 36415; 80053; 80061; 81599; 82550; 82607; 83036; 83721; 84443; 85025; 85651; 86140; 86618

== ENCOUNTER 2023-11-02 08:15 | Outpatient (CLI) | payer MEDICARE, OTHER ==
[2023-11-05 12:08] LABS: A/G RATIO 1.1 (0.7-1.7); ALBUMIN 3.3 g/dL (2.9-4.4); ALPHA-1-GLOBULIN 0.4 g/dL (0.0-0.4); ALPHA-2-GLOBULIN 0.9 g/dL (0.4-1.0); GAMMA GLOBULIN 0.8 g/dL (0.4-1.8); GLOBULIN, TOTAL 3.1 g/dL (2.2-3.9); PROTEIN TOTAL 6.4 g/dL (6.0-8.5)
== END 2023-11-02 08:16 | disposition home or self-care (01) ==
LOC: LAB 08:15
PROVIDERS: ATTEND Internal Medicine
DX: E83.52 Hypercalcemia (principal)
CPT/HCPCS: 36415; 82397; 84155; 84165